=== PATIENT | male | born 1985 | race Caucasian/White ===

== ENCOUNTER 2020-10-03 15:02 | Emergency (ER) | payer BC ==
[~2020-10-03 15:02] MED LIST: IBUPROFEN600 MG PO; ROBAXIN-750750 MG PO; TORADOL 10 MG T10 MG PO; TRAMADOL HCL50 MG PO
[2020-10-03 16:02] LABS: HEMOGLOBIN 12.7 gm/dl (14.0-17.5); RED BLOOD COUNT 4.24 M/UL (4.20-5.50); WHITE BLOOD COUNT 8.3 K/UL (4.5-11.0)
[2020-10-03 16:22] LABS: BUN/CREATININE RATIO 11 (0-10)
== END 2020-10-03 22:30 | disposition home or self-care (01) ==
LOC: ER1 15:02
PROVIDERS: Emergency Medicine
DX: R60.0 Localized edema (principal)
CPT/HCPCS: 80053; 83880; 85025; 99283